=== PATIENT | female | born 1950 | race Caucasian/White ===

== ENCOUNTER 2021-10-30 10:05 | Emergency (ER) | payer MEDICARE, SELFPAY ==
[2021-10-30 10:07] VITALS: BP 133/74; PULSE 68; RESP 16; TEMP 37; O2SAT 96; BMI 19.3
[2021-10-30 10:21] VITALS: BP 133/74; PULSE 68; RESP 16; TEMP 37; O2SAT 96
--- NOTE | 2021-10-30 10:34 | PC.NURSE ---
SON, DONNIE ARMENTA [phone]
--- NOTE | 2021-10-30 10:59 | W.ED.ABDPA2 ---
HPI - Abdominal Pain General: Chief Complaint: Abdominal Pain Stated Complaint: ABD PAIN; N/V Time Seen by Provider: 10/30/21 10:10 Source: patient Mode of arrival: ambulatory Limitations: no limitations History of Present Illness: 71-year-old female presents emergency room from EMS. Patient is moderately confused. She tells me she was previously skilled nursing her son took her heart home from the skilled nursing when she was staying with him she did not like the conditions so she walked off by herself this morning. She reports having fallen last night she was able to get up and ambulate. She is awake and alert. She complains of generalized pain particularly in her hips but this has been an ongoing problem and seems of been exacerbated by a fall last night. When initially seen the patient and her son is not here with her but she identified him by name and was aware that he was coming. MD elicited complaint: abdominal pain Pertinent past history: other (Cognitive decline) Onset (ago): week(s) Pain Consistency: constant Severity: mild Quality: aching Exacerbating factors: nothing Relieving factors: nothing Associated Symptoms: Denies anorexia, belching, bloating, change in bowel habits, change in stool character, chills, coffee ground emesis, constipation, GI cramping, diarrhea, dyspepsia, dysuria, excessive flatus, fever(s), heartburn, hematochezia, hematuria, hematemesis, fecal incontinence, loose stools, melena, poor appetite, syncope and vomiting Review of Systems Const: Denies: fever(s), chills, fatigue or malaise ENMT: Denies: throat pain, ear or mastoid pain, nasal discharge or nasal congestion Card: Denies: syncope Resp: Denies: dyspnea, productive cough or non-productive cough GI: Denies: vomiting, hematemesis, coffee ground emesis, heartburn, diarrhea, constipation, bloating, GI cramping, belching, excessive flatus, fecal incontinence, change in bowel habits, change in stool character, hematochezia or melena : Denies: flank pain, difficulty voiding, dysuria or hematuria Skin/Breast: Denies: rash or pruritus PFS ED PFSH: Medical History (Updated 10/30/21 @ 12:12 by Mello Fofana DO) Dementia Social History (Updated 10/30/21 @ 11:06 by BOAZ Aldana Smoking and tobacco status: never smoked Alcohol intake: never Physical Exam Const: COMMON NORMALS: no acute distress GENERAL APPEARANCE: cooperative and comfortable ORIENTATION/CONSCIOUSNESS: Yes awake HENMT: COMMON NORMALS: normocephalic and atraumatic HEAD & SCALP: normocephalic and atraumatic Resp: COMMON NORMALS: normal respiratory effort, No retractions, No use of accessory muscles and clear to auscultation bilaterally AUSCULTATION: clear to auscultation bilaterally Cardio: COMMON NORMALS: regular rate, regular rhythm and No murmurs present (Cardio) RATE: regular rate RHYTHM: regular rhythm GI: COMMON NORMALS: Soft to palpation and No hepatosplenomegaly present AUSCULTATION: Yes normoactive bowel sounds PALPATION: Yes Soft to palpation, No Tenderness to palpation present (GI), No Guarding due to palpation present (GI) and Yes No hepatosplenomegaly present Extremity: COMMON NORMALS: normal to inspection, capillary refill normal, no clubbing, cyanosis or edema, no calf tenderness and no pedal edema Skin: COMMON NORMALS: no rashes or lesions noted GENERAL SKIN EXAM: no rashes or lesions noted Course Vital Signs: Vital signs: Vital Signs Temperature 98.6 F 10/30/21 10:21 Pulse Rate 61 10/30/21 12:58 Respiratory Rate 16 10/30/21 11:37 Blood Pressure 122/73 10/30/21 12:58 Pulse Oximetry 97 10/30/21 12:58 Oxygen Delivery Me thod 10/30/21 11:37 MDM - Abdominal Pain Medical Decision Making Cystitis present also has some dementia. Rocephin given here started on Macrodantin discharge home encourage family to follow-up with primary care to look at skilled nursing placement. Labs imaging and EKG reviewed with patient and family Medical Records I reviewed the patient's medical records. Lab Data I reviewed the patient's lab results. : 10/30/21 10:15 10/30/21 10:15 Labs/Radiology: Laboratory Results WBC 5.4 10^3/uL (4.0-10.0) 10/30/21 10:15 RBC 4.20 10^6/uL (4.1-5.3) 10/30/21 10:15 Hgb 13.2 g/dL (11.5-15.3) 10/30/21 10:15 Hct 40.2 % (37.0-47.0) 10/30/21 10:15 MCV 95.7 fl (81-99) 10/30/21 10:15 MCH 31.4 pg (28.0-34.0) 10/30/21 10:15 MCHC 32.8 g/dL (30.0-36.0) 10/30/21 10:15 RDW 12.5 % (12.1-15.1) 10/30/21 10:15 Plt Count 360 10^3/cmm (130-400) 10/30/21 10:15 MPV 9.8 fL (7.4-10.4) 10/30/21 10:15 Neut % (Auto) 52.3 % 10/30/21 10:15 Lymph % (Auto) 34.4 % 10/30/21 10:15 [place] % (Auto) 9.2 % 10/30/21 10:15 Eos % (Auto) 2.2 % 10/30/21 10:15 Baso % (Auto) 1.5 % 10/30/21 10:15 Neut # (Auto) 2.84 10^3/uL (1.8-7.7) 10/30/21 10:15 Lymph # (Auto) 1.9 10^3/uL (0.8-4.8) 10/30/21 10:15 [place] # (Auto) 0.5 10^3/uL (0.2-0.9) 10/30/21 10:15 Eos # (Auto) 0.1 10^3/uL (0.0-0.8) 10/30/21 10:15 Baso # (Auto) 0.1 10^3/uL (0.0-0.1) 10/30/21 10:15 Nucleated RBC % (auto) 0 % 10/30/21 10:15 Nucleated RBCs # 0.0 /100WBC 10/30/21 10:15 Sodium 139 mmol/L (136-145) 10/30/21 10:15 Potassium 5.1 mmol/L (3.5-5.1) 10/30/21 10:15 Chloride 103 mmol/L (98-107) 10/30/21 10:15 Carbon Dioxide 28 mmol/L (22-29) 10/30/21 10:15 Anion Gap 13.1 (5-19) 10/30/21 10:15 BUN 5 mg/dL (8-23) L 10/30/21 10:15 Creatinine 0.6 mg/dL (0.5-0.9) 10/30/21 10:15 GFR Calculation Not Reportable 10/30/21 10:15 Glucose 99 mg/dL (65-115) 10/30/21 10:15 Calculated Osmolality 285 mOsm/kg (285-295) 10/30/21 10:15 Calcium 9.0 mg/dL (8.5-10.5) 10/30/21 10:15 Total Bilirubin 0.3 mg/dL (0.15-1.2) 10/30/21 10:15 AST 15 U/L (0-32) 10/30/21 10:15 ALT 11 U/L (0-33) 10/30/21 10:15 Alkaline Phosphatase 102 IU/L (35-105) 10/30/21 10:15 Total Protein 6.6 g/dL (6.6-8.7) 10/30/21 10:15 Albumin 3.5 g/dL (3.5-5.2) 10/30/21 10:15 Globulin 3.1 g/dL (1.3-4.6) 10/30/21 10:15 Urine Color Yellow (Yellow) 10/30/21 11:16 Urine Appearance Sl hazy (CLEAR) 10/30/21 11:16 Urine pH 5 (5-7) 10/30/21 11:16 Ur Specific [place] 1.005 (1.005-1.030) 10/30/21 11:16 Urine Protein Neg (Negative) 10/30/21 11:16 Urine Glucose (UA) Norm (Normal) 10/30/21 11:16 Urine Ketones Negative (Negative) 10/30/21 11:16 Urine Blood Neg (Negative) 10/30/21 11:16 Urine Nitrate Positive (Negative) H 10/30/21 11:16 Urine Bilirubin Neg (Negative) 10/30/21 11:16 Urine Urobilinogen Norm mg/dL (Negative) 10/30/21 11:16 Ur Leukocyte Esterase Negative (Negative) 10/30/21 11:16 Urine RBC 0-4 /hpf (0-2) H 10/30/21 11:16 Urine WBC 0-4 /hpf (0-5) H 10/30/21 11:16 Ur Squamous Epith Cells 0-4 /hpf (0-5) H 10/30/21 11:16 Ur Transition Epith Cell 0-4 /hpf 10/30/21 11:16 Amorphous Sediment Not Reportable 10/30/21 11:16 Urine Bacteria 3+ /hpf (NONE) H 10/30/21 11:16 Discharge Plan Discharge Patient Disposition: Home Clinical Impression: Cystitis, Dementia Prescriptions: New Macrobid 100 mg capsule 100 mg PO BID 7 Days Qty: 14 0RF Rx Instructions: must administer with a meal/food Discharge Orders: Discharge ED (Routine); Ordered 10/30/21 Ordered By: Mello Fofana Discharge Diet: Usual diet Discharge Activity: Resume usual activity Patient Instructions: Opioid Safety Activity Restrictions/Additional Instructions: You are treated for a bladder infection today in the emergency room. Would recommend you follow-up with your primary care doctor to reevaluate for skilled nursing level of care or assisted living. Coding Level of Care Code ED Pest Control Technician for Chg Fwd Exam Detailed
[2021-10-30 11:04] LABS: Basophils # 0.1 10^3/uL (0.0-0.1); Basophils % 1.5 %; Eosinophils # 0.1 10^3/uL (0.0-0.8); Eosinophils % 2.2 %; Hematocrit 40.2 % (37.0-47.0); Hemoglobin 13.2 g/dL (11.5-15.3); Lymphocytes # 1.9 10^3/uL (0.8-4.8); Lymphocytes % 34.4 %; Mean Corpuscular HGB Conc 32.8 g/dL (30.0-36.0); Mean Corpuscular Hemoglobin 31.4 pg (28.0-34.0); Mean Corpuscular Volume 95.7 fl (81-99); Mean Platelet Volume 9.8 fL (7.4-10.4); Monocytes # 0.5 10^3/uL (0.2-0.9); Monocytes % 9.2 %; Neutrophils # 2.84 10^3/uL (1.8-7.7); Neutrophils % 52.3 %; Nucleated Red Blood Cells % 0 %; Platelet Count 360 10^3/cmm (130-400); Red Cell Distribution Width 12.5 % (12.1-15.1); White Blood Count 5.4 10^3/uL (4.0-10.0)
--- NOTE | 2021-10-30 11:06 | ECG_ITS ---
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 Measurements Intervals [place] Rate: 64 P: 15 CO: 158 QRS: -26 QRSD: 90 T: 48 QT: 426 QTc: 442 Interpretive Statements SINUS RHYTHM WITH OCCASIONAL ECTOPIC PREMATURE COMPLEXES BORDERLINE LEFT AXIS DEVIATION [QRS AXIS < -20] No previous ECG available for comparison Electronically Signed On 10-30-2021 18:57:59 CDT by Dayami Venegas M.D. [id number]
[2021-10-30 11:14] VITALS: BP 122/73; PULSE 70; RESP 16; O2SAT 96
[2021-10-30 11:19] LABS: Alanine Aminotransferase 11 U/L (0-33); Albumin Level 3.5 g/dL (3.5-5.2); Alkaline Phosphatase 102 IU/L (35-105); Anion Gap 13.1 (5-19); Aspartate Amino Transferase 15 U/L (0-32); Blood Urea Nitrogen 5 mg/dL (8-23); Carbon Dioxide 28 mmol/L (22-29); Chloride 103 mmol/L (98-107); Globulin 3.1 g/dL (1.3-4.6); Glucose 99 mg/dL (65-115); Osmolality Calculated 285 mOsm/kg (285-295); Potassium 5.1 mmol/L (3.5-5.1); Sodium 139 mmol/L (136-145); Total Bilirubin 0.3 mg/dL (0.15-1.2); Total Protein 6.6 g/dL (6.6-8.7)
[2021-10-30 11:37] VITALS: BP 122/73; PULSE 65; RESP 16; O2SAT 97
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
[2021-10-30 11:43] LABS: Add Urine Microscopic? YES; Bilirubin Urine Neg (Negative); Blood Urine Neg (Negative); Glucose Urine UA Norm (Normal); Ketones Urine Negative (Negative); Leukocyte Esterase Urine Negative (Negative); Nitrate Urine Positive (Negative); Protein Urine Neg (Negative); RBC Urine 0-4 /hpf (0-2); Specific Gravity, Urine 1.005 (1.005-1.030); Squamous Epithelial Cell Urine 0-4 /hpf (0-5); Transitional Epi Cells Urine 0-4 /hpf; Urine Appearance SL Hazy (CLEAR); Urine Color Yellow (Yellow); Urobilinogen Urine Norm (Negative); WBC Urine 0-4 /hpf (0-5); pH Urine 5 (5-7)
[2021-10-30 11:44] LABS: Add Urine Culture? Yes; Bacteria Urine 3+ /hpf
[2021-10-30] MEDS: cefTRIAXone 1,000 mg SDV 1000 MG IM (12:19)
[2021-10-30 12:58] VITALS: BP 122/73; PULSE 61; O2SAT 97
== END 2021-10-30 13:01 | disposition home or self-care (01) ==
PROVIDERS: Emergency Provider Family Medicine
DX: N30.90 Cystitis, unspecified without hematuria (principal); F03.90 Unspecified dementia, unspecified severity, without behavioral disturbance, psychotic disturbance, mood disturbance, and anxiety
CPT/HCPCS: 80053; 81001; 85025; 87077; 87086; 87186; 93005; 96372; 99284; J0696

== ENCOUNTER 2021-11-01 15:17 | Observation (INO) | payer MEDICARE, SELFPAY ==
[2021-11-01 15:40] VITALS: BP 128/78; PULSE 86; RESP 16; TEMP 36.6; O2SAT 95
--- NOTE | 2021-11-01 15:44 | ECG_ITS ---
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 Measurements Intervals [place] Rate: 67 P: 38 TN: 170 QRS: 1 QRSD: 97 T: 44 QT: 410 QTc: 434 Interpretive Statements SINUS RHYTHM LOW QRS VOLTAGE IN PRECORDIAL LEADS [QRS DEFLECTION < 1.0 mV IN CHEST LEADS] POSSIBLE RIGHT VENTRICULAR CONDUCTION DELAY [RSR (QR) IN V1/V2] INTERPRETATION BASED ON A DEFAULT AGE OF 40 YEARS Compared to ECG 10/30/2021 11:06:52 Low QRS voltage now present Electronically Signed On 11-02-2021 0:49:39 CDT by Dayami Venegas M.D. [id number]
--- NOTE | 2021-11-01 15:44 | CTR_ITS ---
PROCEDURE INFORMATION: Exam: CT Head Without Contrast Exam date and time: 11/01/2021 4:40 PM Age: 71 years old Clinical indication: Altered mental status/memory loss; Confusion or disorientation; Additional info: AMS, pain all over body, history of arthritis TECHNIQUE: Imaging protocol: Computed tomography of the head without contrast. Radiation optimization: All CT scans at this facility use at least one of these dose optimization techniques: automated exposure control; mA and/or kV adjustment per patient size (includes targeted exams where dose is matched to clinical indication); or iterative reconstruction. COMPARISON: No relevant prior studies available. RADIATION DOSE METRICS: Total DLP (mGy-cm): 937.38 FINDINGS: Brain: Mild cortical volume loss. Mild hypodensities in supratentorial periventricular and subcortical white matter, consistent with microangiopathy. No intracranial hemorrhage. Chronic lacunar infarcts in the left caudate head and right subinsular region. Cerebral ventricles: No ventriculomegaly. Paranasal sinuses: Mild mucosal thickening in the ethmoid air cells. The other sinuses are clear. Mastoid air cells: Visualized mastoid air cells are well aerated. Orbital cavities: Prior cataract surgery. Bones/joints: Unremarkable. No acute fracture. Soft tissues: Unremarkable. Vasculature: No hyperdense artery. CT/CT head wo con* [id number] IMPRESSION: No acute intracranial finding.
--- NOTE | 2021-11-01 15:44 | XRR_ITS ---
PROCEDURE INFORMATION: Exam: XR Chest Exam date and time: 11/01/2021 3:48 PM Age: 71 years old Clinical indication: Pre-operative exam; Cardiovascular screening and respiratory screening exam; Additional info: Medical clearance TECHNIQUE: Imaging protocol: Radiologic exam of the chest. Views: 1 view. COMPARISON: No relevant prior studies available. FINDINGS: Lungs: Unremarkable. No consolidation. Pleural spaces: Unremarkable. No pleural effusion. No pneumothorax. Heart/Mediastinum: Unremarkable. No cardiomegaly. Bones/joints: Unremarkable. XR/XR chest 1V portable [id number] IMPRESSION: No acute findings.
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
[2021-11-01 16:33] LABS: Basophils # 0.1 10^3/uL (0.0-0.1); Basophils % 1.1 %; Eosinophils # 0.1 10^3/uL (0.0-0.8); Eosinophils % 1.9 %; Hematocrit 38.4 % (37.0-47.0); Hemoglobin 12.8 g/dL (11.5-15.3); Lymphocytes # 2.1 10^3/uL (0.8-4.8); Lymphocytes % 33.7 %; Mean Corpuscular HGB Conc 33.3 g/dL (30.0-36.0); Mean Corpuscular Hemoglobin 31.4 pg (28.0-34.0); Mean Corpuscular Volume 94.3 fl (81-99); Mean Platelet Volume 9.7 fL (7.4-10.4); Monocytes # 0.5 10^3/uL (0.2-0.9); Monocytes % 7.6 %; Neutrophils % 55.5 %; Nucleated Red Blood Cells % 0 %; Platelet Count 328 10^3/cmm (130-400); Red Blood Count 4.07 10^6/uL (4.1-5.3); Red Cell Distribution Width 12.6 % (12.1-15.1); White Blood Count 6.3 10^3/uL (4.0-10.0)
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
[2021-11-01 17:17] VITALS: BP 119/83; PULSE 71; RESP 21; O2SAT 97
[2021-11-01 17:34] LABS: Troponin(5th) Baseline 13 ng/L (0-10)
[2021-11-01 17:37] LABS: Anion Gap 13.9 (5-19); Blood Urea Nitrogen 9 mg/dL (8-23); Calcium 9.1 mg/dL (8.5-10.5); Carbon Dioxide 28 mmol/L (22-29); Chloride 101 mmol/L (98-107); Free T4 Free Thyroxine 1.18 ng/dL (0.82-1.77); Glucose 121 mg/dL (65-115); Osmolality Calculated 288 mOsm/kg (285-295); Potassium 3.9 mmol/L (3.5-5.1); Sodium 139 mmol/L (136-145); Thyroid Stimulating Hormone 0.66 uIU/mL (0.27-4.20)
--- NOTE | 2021-11-01 17:44 | ECG_ITS ---
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 Measurements Intervals [place] Rate: 70 P: 38 OR: 166 QRS: -11 QRSD: 97 T: 48 QT: 418 QTc: 452 Interpretive Statements SINUS RHYTHM INCOMPLETE RIGHT BUNDLE BRANCH BLOCK [90+ ms QRS DURATION, TERMINAL R IN V1/V2, 40+ ms S IN I/aVL/V4/V5/V6] Compared to ECG 11/01/2021 16:22:14 Incomplete right bundle-branch block now present Electronically Signed On 11-02-2021 19:03:40 CDT by Jesus Vo M.D. [id number]
[2021-11-01 17:47] LABS: Add Urine Microscopic? NO; Charge for UA Resulting for Rev
[2021-11-01 17:59] LABS: Bilirubin Urine Neg (Negative); Blood Urine Neg (Negative); Glucose Urine UA Norm (Normal); Ketones Urine Negative (Negative); Leukocyte Esterase Urine Negative (Negative); Nitrate Urine Negative (Negative); Protein Urine Neg (Negative); Sulfosalicylic Acid Urine Negative (Negative); Urine Appearance Clear (CLEAR); Urine Color Straw (Yellow); Urobilinogen Urine Norm (Negative); pH Urine 8 (5-7)
[2021-11-01 18:05] VITALS: BP 128/93; PULSE 85; RESP 21; O2SAT 95
[2021-11-01 19:04] LABS: Troponin 5 2HR 11.9 ng/L (0-10); Troponin 5 2HR Delta -1.1 ABS# (0-10)
[2021-11-01 20:15] VITALS: BP 121/76; PULSE 70; RESP 18; O2SAT 96
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
[2021-11-01 20:55] VITALS: BP 134/84; PULSE 84; RESP 18; TEMP 36.6; O2SAT 97
[2021-11-01 20:56] VITALS: BMI 20.7
[2021-11-01] MEDS: enoxaparin 40 mg/0.4 mL Syringe SUBCUT (21:30)
[2021-11-01] MEDS: cefTRIAXone 1,000 MG in sodium chloride 0.9% (plus) 50 ML 100 MG IV (21:30)
[2021-11-02] VITALS: BP 130/79; PULSE 76; RESP 17; TEMP 36.6; O2SAT 95
[2021-11-02 04:00] VITALS: BP 145/67; PULSE 71; RESP 18; TEMP 36.4; O2SAT 95
[2021-11-02 05:20] LABS: Basophils # 0.1 10^3/uL (0.0-0.1); Basophils % 1.8 %; Eosinophils # 0.3 10^3/uL (0.0-0.8); Eosinophils % 5.5 %; Hematocrit 37.9 % (37.0-47.0); Hemoglobin 12.4 g/dL (11.5-15.3); Lymphocytes # 2.5 10^3/uL (0.8-4.8); Lymphocytes % 48.2 %; Mean Corpuscular HGB Conc 32.7 g/dL (30.0-36.0); Mean Corpuscular Hemoglobin 31.2 pg (28.0-34.0); Mean Corpuscular Volume 95.2 fl (81-99); Mean Platelet Volume 9.7 fL (7.4-10.4); Monocytes # 0.4 10^3/uL (0.2-0.9); Monocytes % 8.2 %; Neutrophils # 1.85 10^3/uL (1.8-7.7); Neutrophils % 36.1 %; Nucleated Red Blood Cells % 0 %; Platelet Count 304 10^3/cmm (130-400); Red Blood Count 3.98 10^6/uL (4.1-5.3); Red Cell Distribution Width 12.8 % (12.1-15.1); White Blood Count 5.1 10^3/uL (4.0-10.0)
[2021-11-02 05:46] LABS: Alanine Aminotransferase 12 U/L (0-33); Albumin Level 3.4 g/dL (3.5-5.2); Alkaline Phosphatase 88 IU/L (35-105); Anion Gap 13.1 (5-19); Aspartate Amino Transferase 14 U/L (0-32); Blood Urea Nitrogen 7 mg/dL (8-23); Calcium 8.9 mg/dL (8.5-10.5); Carbon Dioxide 28 mmol/L (22-29); Chloride 105 mmol/L (98-107); Globulin 2.9 g/dL (1.3-4.6); Glucose 126 mg/dL (65-115); Magnesium 1.9 mg/dL (1.7-2.3); Osmolality Calculated 294 mOsm/kg (285-295); Potassium 4.1 mmol/L (3.5-5.1); Sodium 142 mmol/L (136-145); Total Bilirubin 0.3 mg/dL (0.15-1.2); Total Protein 6.3 g/dL (6.6-8.7)
[2021-11-02 07:55] VITALS: BP 143/71; PULSE 67; RESP 16; TEMP 36.9; O2SAT 95
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
--- NOTE | 2021-11-02 10:16 | PC.PHAR ---
pt states she used to take medications but unable to verify meds - ext med history shows no medications filled and does not show macrobid filled or any other medications
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
[2021-11-02] MEDS: escitalopram 10 mg Tablet PO (11:43)
[2021-11-02 12:00] VITALS: BP 119/73; PULSE 68; RESP 16; TEMP 36.6; O2SAT 94
[2021-11-02] MEDS: ALPRAZolam 0.5 mg Tablet PO (14:57)
[2021-11-02 16:00] VITALS: BP 132/69; PULSE 67; RESP 16; TEMP 36.6; O2SAT 96
[2021-11-02 20:00] VITALS: BP 110/64; PULSE 69; RESP 17; TEMP 36.7; O2SAT 96
[2021-11-02] MEDS: enoxaparin 40 mg/0.4 mL Syringe SUBCUT (20:54)
[2021-11-03] VITALS: BP 108/61; PULSE 61; RESP 17; TEMP 36.5; O2SAT 94
[2021-11-03] MEDS: acetaminophen 325 mg Tablet 650 MG PO ×2 (03:36→15:36)
[2021-11-03 04:00] VITALS: BP 133/66; PULSE 69; RESP 18; TEMP 36.4; O2SAT 98
[2021-11-03 05:50] LABS: Basophils # 0.1 10^3/uL (0.0-0.1); Basophils % 1.4 %; Eosinophils # 0.2 10^3/uL (0.0-0.8); Eosinophils % 4.5 %; Hematocrit 38.4 % (37.0-47.0); Hemoglobin 12.6 g/dL (11.5-15.3); Lymphocytes # 2.2 10^3/uL (0.8-4.8); Lymphocytes % 45.8 %; Mean Corpuscular HGB Conc 32.8 g/dL (30.0-36.0); Mean Corpuscular Hemoglobin 31.2 pg (28.0-34.0); Mean Platelet Volume 9.6 fL (7.4-10.4); Monocytes # 0.5 10^3/uL (0.2-0.9); Monocytes % 9.3 %; Neutrophils # 1.88 10^3/uL (1.8-7.7); Neutrophils % 38.8 %; Nucleated Red Blood Cells % 0 %; Platelet Count 305 10^3/cmm (130-400); Red Blood Count 4.04 10^6/uL (4.1-5.3); Red Cell Distribution Width 12.9 % (12.1-15.1); White Blood Count 4.9 10^3/uL (4.0-10.0)
[2021-11-03 06:13] LABS: Alanine Aminotransferase 10 U/L (0-33); Albumin Level 3.4 g/dL (3.5-5.2); Alkaline Phosphatase 83 IU/L (35-105); Anion Gap 12.2 (5-19); Aspartate Amino Transferase 14 U/L (0-32); Blood Urea Nitrogen 6 mg/dL (8-23); Calcium 9.4 mg/dL (8.5-10.5); Carbon Dioxide 28 mmol/L (22-29); Chloride 103 mmol/L (98-107); Globulin 2.9 g/dL (1.3-4.6); Glucose 101 mg/dL (65-115); Magnesium 1.9 mg/dL (1.7-2.3); Osmolality Calculated 286 mOsm/kg (285-295); Phosphorus 3.8 mg/dL (2.5-4.5); Potassium 4.2 mmol/L (3.5-5.1); Sodium 139 mmol/L (136-145); Total Bilirubin 0.3 mg/dL (0.15-1.2); Total Protein 6.3 g/dL (6.6-8.7)
[2021-11-03 07:40] VITALS: BP 115/67; PULSE 66; RESP 16; TEMP 36.7; O2SAT 96
[2021-11-03] MEDS: ALPRAZolam 0.5 mg Tablet PO ×2 (08:51→15:36)
[2021-11-03] MEDS: escitalopram 10 mg Tablet PO (08:51)
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
[2021-11-03 11:15] VITALS: BP 109/68; PULSE 78; RESP 15; TEMP 36.7; O2SAT 98
[2021-11-03 15:27] VITALS: BP 121/71; PULSE 63; RESP 15; O2SAT 96
[2021-11-03 20:00] VITALS: BP 115/55; PULSE 68; RESP 17; TEMP 36.4; O2SAT 95
[2021-11-03] MEDS: enoxaparin 40 mg/0.4 mL Syringe SUBCUT (20:54)
[2021-11-04] VITALS: BP 110/53; PULSE 63; RESP 17; TEMP 36.6; O2SAT 93
[2021-11-04 03:44] VITALS: BP 116/68; PULSE 72; RESP 18; TEMP 36.6; O2SAT 95
[2021-11-04 07:36] VITALS: BP 110/68; PULSE 63; RESP 16; TEMP 36.6; O2SAT 96
[2021-11-04] MEDS: escitalopram 10 mg Tablet PO (09:06)
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
[2021-11-04 11:46] VITALS: BP 122/73; PULSE 63; RESP 16; TEMP 37; O2SAT 96
--- NOTE | 2021-11-04 12:06 | PC.NURSE ---
ESCITALOPRAM PRESCRIPTION CALLED INTO [facility], PER DR. GOLDSTEIN CANCELL THE XANAX ORDER.
[2021-11-04 12:17] LABS: SARS Covid-2 Antigen Negative (Negative)
[2021-11-04 15:38] VITALS: BP 130/74; PULSE 71; RESP 16; TEMP 37; O2SAT 96
[2021-11-04 15:44] VITALS: BP 130/74; PULSE 71; RESP 16; TEMP 37; O2SAT 96
== END 2021-11-04 15:40 | disposition skilled nursing facility (03) ==
LOC: ER 16:08 → MEDSURG 20:15
PROVIDERS: Admitting Provider Family Medicine; Emergency Provider Emergency Medicine; Visit Provider Internal Medicine
DX: T74.01XA Adult neglect or abandonment, confirmed, initial encounter (principal); F43.20 Adjustment disorder, unspecified; F32.A Depression, unspecified; M17.0 Bilateral primary osteoarthritis of knee; I25.10 Atherosclerotic heart disease of native coronary artery without angina pectoris; I50.9 Heart failure, unspecified; N17.9 Acute kidney failure, unspecified
CPT/HCPCS: 36415; 70450; 71045; 80048; 80053; 81003; 83735; 84100; 84439; 84443; 84484; 85025; 87426; 93005; 96372; 97110; 97116; 97161; 97165; 99285; G0378; J0696; J1650

== ENCOUNTER 2023-10-18 21:43 | Emergency (ER) | payer MEDICARE, MEDICAID, SELFPAY ==
[2023-10-18 21:44] VITALS: BP 141/113; PULSE 90; RESP 18; TEMP 36.6; O2SAT 95; BMI 32.3
--- NOTE | 2023-10-18 21:55 | XRR_ITS ---
PROCEDURE INFORMATION: Exam: XR Left Knee Exam date and time: 10/18/2023 10:00 PM Age: 73 years old Clinical indication: Injury or trauma; Fall; Blunt trauma; Knee; Left; Additional info: Fall/pain TECHNIQUE: Imaging protocol: Radiologic exam of the left knee. Views: 3 views. COMPARISON: No relevant prior studies available. FINDINGS: Bones/joints: No acute fractures or subluxations. Moderate to severe degenerative changes with joint space narrowing of the lateral tibiofemoral compartment. No knee joint effusion. Soft tissues: Soft tissues unremarkable. XR/XR knee LT 3V* [id number] IMPRESSION: No acute fractures or subluxations. Moderate to severe degenerative changes of the knee.
--- NOTE | 2023-10-18 21:55 | XRR_ITS ---
PROCEDURE INFORMATION: Exam: XR Right Knee Exam date and time: 10/18/2023 10:01 PM Age: 73 years old Clinical indication: Injury or trauma; Fall; Blunt trauma; Knee; Right; Additional info: Fall/pain TECHNIQUE: Imaging protocol: Radiologic exam of the right knee. Views: 3 views. COMPARISON: No relevant prior studies available. FINDINGS: Bones/joints: No acute fractures or subluxations. Moderate degenerative changes of the knee with joint space narrowing and marginal osteophytes. No knee joint effusion. Soft tissues: Soft tissues are unremarkable. XR/XR knee RT 3V* [id number] IMPRESSION: No acute fractures or subluxations.
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
[2023-10-18 22:38] VITALS: BP 157/85; PULSE 98; RESP 18; O2SAT 92
[2023-10-18 22:40] VITALS: RESP 16; O2SAT 95
[2023-10-18] MEDS: morphine 4 mg/mL SDV 1 mL IM (22:40)
== END 2023-10-19 00:11 | disposition home or self-care (01) ==
PROVIDERS: Emergency Provider Physician Assistant
DX: S80.02XA Contusion of left knee, initial encounter (principal); S80.01XA Contusion of right knee, initial encounter; G30.9 Alzheimer's disease, unspecified; F02.80 Dementia in other diseases classified elsewhere, unspecified severity, without behavioral disturbance, psychotic disturbance, mood disturbance, and anxiety; W19.XXXA Unspecified fall, initial encounter; Y92.129 Unspecified place in nursing home as the place of occurrence of the external cause
CPT/HCPCS: 73562; 96372; 96374; 99284; J2270